=== PATIENT | female | born 1985 | race Caucasian/White ===

== ENCOUNTER → 2018-12-01 | Outpatient (CLI) | payer BC ==
--- NOTE | 2018-12-01 12:02 | Diagnostic Imaging Report ---
INDICATION: survey TECHNIQUE: Multiple real-time grayscale images were obtained over the gravid uterus. COMPARISON: None. FINDINGS: There are no prior studies available for comparison. There is a single live fetus in cephalic presentation. heart motion is noted and a rate of 143 BPM is recorded. There are no abnormalities identified; however, the four-chamber heart view and the spine are not optimally visualized. I would recommend that a short-term (4-6 weeks) follow-up exam be performed for further evaluation. The growth parameters are fairly uniform. The placenta is anterior and there is no previa. The amniotic fluid volume is within normal limits. The cervix is visualized and measures 5.5 cm in length. Biometrical measurements are as follows: Biparietal 4.70 cm, age 20 weeks 2 days. Head circumference 17.37 cm, age 20 weeks 0 days. Abdominal circumference 15.04 cm, age 20 weeks 2 days. Femur length 3.51 cm, age 21 weeks 1 days. Sonographic estimate age: 20 weeks 3 days. Sonographic estimated date of delivery: 04/17/19. Estimated Weight: 362 gm (+/- 53 gm). LMP percentile: 37%. heart rate: 143 beats per minute. number: 1 of 1. IMPRESSION: 1. There is a single live fetus in cephalic presentation approximately 20 weeks 3 days gestation +/-1.5 weeks. The EDC is April 17, 2019. 2. There are no abnormalities identified although the four-chamber heart view and spine are not optimally visualized. Recommendations as above. 3. The growth parameters are fairly uniform. Dictated by: Dictated on workstation # [id number]
== END ==
LOC: RAD 10:05
PROVIDERS: ATTEND Obstetrics & Gynecology
DX: Z36.89 Encounter for other specified antenatal screening (principal); Z3A.20 20 weeks gestation of pregnancy
CPT/HCPCS: 76805

== ENCOUNTER 2019-04-18 19:00 | Inpatient (IN) | payer BC ==
--- NOTE | 2019-04-18 19:11 | NUR ---
SINGH IRAHETA presented to unit via ambulatory from home, accompanied by so, for scheduled INDUCTION. SINGH IRAHETA weighed, gowned, voided, and to bed. SINGH IRAHETA oriented to bed controls, call light, TV, heat, and A/C controls.
--- NOTE | 2019-04-18 21:23 | History & Physical-OB ---
OB - Chief Complaint & HPI Date/Time Date of Admission: Date of Admission: April 18, 2019 at 19:00 Date seen by a Provider: April 18, 2019 Time Seen by a Provider: 21:00 Chief Complaint/History OB-Reason for Admission/Chief: Induction of Labor Hx : 1 Hx Para: 0 Expected Date of Delivery: April 15, 2019 Gestational Age in Weeks: 40 Gestational Age in Days: 3 Indication for induction: post dates Admission Nurse Assessment Rev: Yes Other O pos Antibody neg RI RPR NR HBsAg NR HIV NR GC neg GBS neg Allergies and Home Medications Patient Home Medication List Home Medication List Reviewed: Yes OB - History Hx of Present Care: Yes Ultrasounds: Normal mid trimester US Obstetrical Complications: None Medical Complications: None Patient Past Medical History n/a OB - Admission Exam Physical Exam HEENT: NCAT Heart: Rhythm Normal Lungs: Clear Abdomen: Gravid Extremities: Normal Reflexes: Normal Cervical Dilatation: 2cm Effacement: 75% Station: -1 Membranes: Intact Heart Rate: 130's Accelerations: Accelerations Present Decelerations: No Decelerations Short Term Variability: Present Shoe Cutter Variability: Average (6-25) Contractions on Admission: 6-10 Minutes Apart Singh Scoring Tool (Modified) Dilation (cm): 1-2cm (1) Effacement (%): 51-79% (2) Descent/Station: -1,0 (2) Cervix Consistency: Soft (2) Cervix Position: Anterior (2) Singh Score: 8 OB - Assessment/Plan/Diagnosis Assessment Assessment: induction of labor Admission Dx 33 yo @ 40.3 Postdates GBS neg Admission Status: Inpatient Order (span 2 midnights) Reason for Inpatient Admission: induction of labor at term Plan Induction Method: per Misoprostol Protocol MARTY ANTHONY DO April 18, 2019 21:23
[2019-04-18] MEDS ORDERED: D5 LR IV SOLUTION 1,000 ML IV ONE (21:28)
[2019-04-18] MEDS: D5 LR IV SOLUTION 1,000 ML IV SCH (21:50)
[2019-04-18 22:00] VITALS: BP 130/76
[2019-04-18] MEDS ORDERED: MISOPROSTOL 100 MCG (CYTOTEC) TAB ONE (22:59)
[2019-04-18] MEDS ORDERED: MISOPROSTOL 100 MCG (CYTOTEC) TAB PO ONE (23:15)
[2019-04-18] MEDS ORDERED: TERBUTALINE INJ 1 MG/ML (BRETHINE) AMP SC PRN (23:15)
[2019-04-18 23:25] LABS: BASOPHILS % (AUTO) 0 % (0-10); EOSINOPHILS # (AUTO) 0.1 10^3/uL (0.0-0.3); EOSINOPHILS % (AUTO) 1 % (0-10); HEMATOCRIT 35 % (35-52); HEMOGLOBIN 12.1 G/DL (11.5-16.0); LYMPHOCYTES # (AUTO) 1.8 X 10^3 (1.0-4.0); LYMPHOCYTES % (AUTO) 19 % (12-44); MEAN CORPUSCULAR HEMOGLOBIN 31 PG (25-34); MEAN CORPUSCULAR HGB CONC 35 G/DL (32-36); MEAN CORPUSCULAR VOLUME 90 FL (80-99); MEAN PLATELET VOLUME 11.1 FL (7.4-10.4); MONOCYTES # (AUTO) 0.7 X 10^3 (0.0-1.0); MONOCYTES % (AUTO) 7 % (0-12); NEUTROPHILS # (AUTO) 7.3 X 10^3 (1.8-7.8); NEUTROPHILS % (AUTO) 74 % (42-75); PLATELET COUNT 213 10^3/uL (130-400); RED CELL DISTRIBUTION WIDTH 14.1 % (10.0-14.5); WHITE BLOOD COUNT 9.9 10^3/uL (4.3-11.0)
[2019-04-18] MEDS ORDERED: LACTATED RINGERS 1,000 ML IV ONE (23:30)
[2019-04-19] VITALS (78 sets, daily range): BP systolic 94–148; BP diastolic 50–94
[2019-04-19] MEDS ORDERED: MISOPROSTOL 100 MCG (CYTOTEC) TAB PO SCH (03:15)
[2019-04-19] MEDS ORDERED: CATHETER FLUSH 10 ML SYR IV SCH ×2 (06:00→22:00)
[2019-04-19] MEDS: D5 LR IV SOLUTION 1,000 ML IV SCH ×3 (06:20→20:22)
[2019-04-19] MEDS ORDERED: HYDROmorphone 2 MG/ML VIAL (DILAUDID) ONE (07:01)
[2019-04-19] MEDS ORDERED: HYDROmorphone 2 MG/ML VIAL (DILAUDID) IV NR (07:15)
[2019-04-19] MEDS ORDERED: OXYTOCIN/NORMAL SALINE 500 ML IV SCH ×2 (08:06→21:56)
--- NOTE | 2019-04-19 10:46 | NUR ---
anesthesia notified of pt's request for epidural placement.
[2019-04-19] MEDS ORDERED: SUFENTA 0.6MCG/ML BUPIVA 0.125 100 ML ONE ×2 (10:55→19:58)
[2019-04-19] MEDS ORDERED: BUPIVACAINE 0.25% 30 ML (SENSORCAINE) VIAL ONE (11:30)
[2019-04-19] MEDS ORDERED: fentaNYL INJECTION 100 MCG/2 ML AMP ONE ×2 (11:30→22:01)
[2019-04-19] MEDS ORDERED: LIDOCAINE PF 2% 5 ML (XYLOCAINE) VIAL ONE (12:12)
[2019-04-19] MEDS ORDERED: ACETAMINOPHEN 500 MG TAB (TYLENOL) ONE (19:41)
[2019-04-19] MEDS ORDERED: PROMETHAZINE INJ 25 MG/ML (PHENERGAN) AMP ONE (20:12)
[2019-04-19] MEDS ORDERED: PROMETHAZINE INJ 25 MG/ML (PHENERGAN) AMP IVP ONE (21:00)
[2019-04-19] MEDS ORDERED: ACETAMINOPHEN 500 MG TAB (TYLENOL) PO ONE (21:00)
[2019-04-19] MEDS ORDERED: CITRIC ACID/SOB CIT (BICITRA) 30 ML UDC ONE (21:14)
[2019-04-19] MEDS ORDERED: ceFAZolin 2 GM/50 ML NS 50 ML ONE (21:14)
[2019-04-19] MEDS ORDERED: FAMOTIDINE 20MG/2ML IV (PEPCID) ONE (21:14)
[2019-04-19] MEDS ORDERED: METOCLOPRAMIDE INJ 10 MG/2 ML (REGLAN) ONE (21:14)
--- NOTE | 2019-04-19 21:55 | Progress Note-Standard ---
Standard Progress Note Progress Notes/Assess & Plan Date Seen by a Provider: April 19, 2019 Time Seen by a Provider: 21:51 Progress/Assessment & Plan Patient induced last night for postdates and started on Misoprostol PO overnight. Started on Pitocin this AM and AROM performed after epidural was placed. She progressed to 7 cm about 5PM, and began having pressure. However re-evaluation at 7 PM and 9PM revealed no cervical change and in fact, swelling of the cervix and caput. Discussed with the patient significant cervical swelling and the beginning of vulvar swelling was discussed. Recommended proceeding with PLTCS due to failure to progress, and suspected CPD. Risk of the procedure reviewed to the patient in detail with present, all questions answered. She and her were agreeable, will proceed with OR staff MARTY Teague DO April 19, 2019 9:55 pm
--- NOTE | 2019-04-19 21:59 | Discharge Inst-Women's Service ---
Discharge Inst-Women's Serv Depart Medication/Instructions New, Converted or Re-Newed RX: RX on Chart Final Diagnosis POD 2 PLTCS Consults/Follow Up Additional Follow Up: Yes Orders/Referrals Dr. Asencio in 7-10 days and in 6 weeks Activity Activity: Activity as Tolerated Driving Instructions: No Driving for 1 Week NO SMOKING: NO SMOKING Nothing Inside Vagina: No Douching, No [place], No Tampons Diet Discharge Diet: No Restrictions Symptoms to Report to : Bleeding Excessive, Pain Increased, Fever Over 101 Degrees F, Vaginal Bleeding Increase, Questions/Concerns For Any Problems or Questions: Contact Your Physician Skin/Wound Care Infection Signs and Symptoms: Increased Redness, Foul Odor of Wound, Increased Drainage, Skin Itchy or Has a Rash, Increased Swelling, Temperature Above 101 F Operative Area Clean and Dry: Keep Incision Clean/Dry Stitches/[place]/Dermabond: Dermabond, Care of Stitches Bathing Instructions: MARTY Esqueda DO April 19, 2019 9:59 pm
[2019-04-19] MEDS ORDERED: TETANUS,DIPTH,PERTUSS P/F (BOOSTRIX) 0.5 ML VIAL IM SCH (22:00)
[2019-04-19] MEDS ORDERED: ONDANSETRON 4 MG/2 ML (SDV) Z0FRAN IVP PRN (22:00)
[2019-04-19] MEDS ORDERED: MEASLES,MUMPS,RUBELLA 1 EA INJ SC SCH (22:00)
[2019-04-19] MEDS ORDERED: KETOROLAC 30 MG/ML VIAL IV SCH (22:00)
[2019-04-19] MEDS ORDERED: DOCU100C37 PO (22:01)
[2019-04-19] MEDS ORDERED: ONDANSETRON 4 MG/2 ML (SDV) Z0FRAN ONE (22:01)
[2019-04-19] MEDS ORDERED: OXYTOCIN/NORMAL SALINE 1,000 ML IV ONE (22:01)
[2019-04-19] MEDS ORDERED: ACHD5005 PO (22:01)
[2019-04-19] MEDS ORDERED: KETOROLAC 30 MG/ML VIAL ONE (22:01)
[2019-04-19] MEDS ORDERED: IBUP-844 PO (22:01)
[2019-04-19] MEDS ORDERED: LACTATED RINGERS 1,000 ML IV PRN (22:47)
[2019-04-20] VITALS (7 sets, daily range): BP systolic 102–137; BP diastolic 56–85
--- NOTE | 2019-04-20 00:10 | NUR ---
Pt to pp room 308 per this rn and chemical recovery operator, scds on and pumping bilat, pain tolerable, a/o, denies needs at this time, pt preparing to stable .
[2019-04-20] MEDS: HYDROcodone/APAP 5 MG/325 MG (LORTAB) TAB PO PRN ×3 (02:00→16:38)
[2019-04-20] MEDS ORDERED: FAMOTIDINE 20MG/2ML IV (PEPCID) IV ONE (02:45)
[2019-04-20] MEDS ORDERED: METOCLOPRAMIDE INJ 10 MG/2 ML (REGLAN) IV ONE (02:45)
[2019-04-20] MEDS ORDERED: CITRIC ACID/SOB CIT (BICITRA) 30 ML UDC PO ONE (02:45)
[2019-04-20] MEDS ORDERED: LACTATED RINGERS 1,000 ML IV ONE (04:25)
[2019-04-20] MEDS ORDERED: CATHETER FLUSH 10 ML SYR IV PRN (04:30)
[2019-04-20] MEDS ORDERED: NALOXONE 0.4 MG/ML 1 ML (NARCAN) VIAL IV PRN (04:30)
[2019-04-20] MEDS ORDERED: EPIDURAL (SUFENTA 0.6MCG/ML BUPIVA 0.125%) 100 ML BAG EPI SCH (04:30)
--- NOTE | 2019-04-20 05:24 | OPERATIVE REPORT ---
DATE OF SERVICE: PREOPERATIVE DIAGNOSES: 1. A 33-year-old G1, P0 at 40 weeks and 4 days' gestation. 2. Failure to progress. 3. Suspected cephalopelvic disproportion. 4. Occiput posterior. POSTOPERATIVE DIAGNOSES: 1. A 33-year-old G1, P0 at 40 weeks and 4 days' gestation. 2. Failure to progress. 3. Suspected cephalopelvic disproportion. 4. Occiput posterior. PROCEDURE: Primary low transverse section. SURGEON: Louie Anthony DO ANESTHESIA: Spinal. ESTIMATED BLOOD LOSS: 300 mL. URINE: 400 mL clear at the end of the procedure. FLUIDS: 500 mL of lactated Ringer's solution. FINDINGS: A live female weighing 6 pounds 14 ounces, Apgars 8 and 9. Grossly normal appearing uterus, bilateral fallopian tubes and ovaries. INDICATIONS FOR PROCEDURE: This patient was brought in for induction of labor for postdates. Prior to her induction, risk of induction was reviewed with the patient versus risk of postdates and approaching post-term. She elected to proceed with postdates induction. Please see my preoperative note for complete details pertaining to the patient's labor course and indications for procedure. The patient was taken to the operating room where spinal anesthesia was found to be adequate. OPERATIVE REPORT IN DETAIL: Once anesthesia was found to be adequate, she was placed in the supine position with a leftward tilt, prepped and draped in a normal sterile fashion. A timeout was performed and anesthesia was tested. I then proceeded to make a Pfannenstiel skin incision with a knife and carried down to the underlying fascia using Bovie cautery. The fascial incision extended laterally using Bovie cautery. The superior aspect of the fascial incision was then grasped with Elvin clamps, tented up and dissected off the underlying rectus muscles. The inferior aspect of the fascial incision was then grasped with Elvin clamps, tented up and dissected off the underlying rectus muscles. The rectus muscle was then dissected down the midline using Metzenbaum scissors, which exposed to the peritoneum, which were entered bluntly and extended using blunt traction. I then placed an Tremaine ring retractor into the peritoneal incision, which offers excellent lateral sidewall retraction. I identified the lower uterine segment, which was found to be thinned out and make a low transverse incision to the vesicouterine peritoneum and bluntly dissect the bladder flap off the lower uterine segment. I then proceed with myotomy until membranes were visualized, at which point I extended uterine incision laterally and superiorly using bandage scissors. The infant was found in the vertex presentation, occiput posterior. With gentle fundal pressure, the infant's head was elevated out the incision where the nares and oropharynx were bulb suctioned. Anterior and posterior shoulders were delivered and was then brought to the operative field where the cord was doubly clamped and cut and was handed off to waiting nurses in attendance. Cord blood was collected. Three-vessel cord with intact placenta delivered spontaneously thereafter. IV Pitocin was initiated to facilitate uterine contraction. Uterine fundus became firmer with bimanual massage. Uterus was then exteriorized and cleared of all endometrial clot and debris. I then proceeded with closing the uterine incision using 0 Vicryl suture in a running locked fashion. Second layer of imbricating 0 Monocryl was placed. Excellent hemostasis was noted after doing this. I then placed the uterus back in the pelvis and copiously irrigated the pelvis using normal saline. Once again, there was no active bleeding noted from any of my dissection planes. I placed Interceed antiadhesive over my low transverse incision. I proceeded with closing the peritoneum using 3-0 Vicryl suture in a running fashion after I removed the Tremaine ring retractor. I also reapproximate the rectus muscles using 3-0 Vicryl suture in an interrupted fashion. The fascia was reapproximated using 0 Vicryl suture in a running fashion. The subcutaneous tissue was reapproximated using 3-0 plain in interrupted subcutaneous stitch and the skin was reapproximated using 4-0 Monocryl in a running subcuticular. Dermabond was applied to the incision and sterile dressings with adhesive white tape. The patient tolerated the procedure well and taken to recovery area in stable condition. Lap and sponge count was correct at the end of procedure. Instrument count was correct as well. Two grams of Ancef given preoperatively for infection prophylaxis. Job ID: [id number] DocumentID: [id number] Dictated Date: 04/19/2019 23:25:54 Compliance Paralegal Date: 04/20/2019 05:24:03 Dictated By: LOUIE ANTHONY DO
[2019-04-20 05:37] LABS: BASOPHILS % (AUTO) 0 % (0-10); EOSINOPHILS % (AUTO) 0 % (0-10); HEMATOCRIT 32 % (35-52); LYMPHOCYTES # (AUTO) 1.3 X 10^3 (1.0-4.0); LYMPHOCYTES % (AUTO) 11 % (12-44); MEAN CORPUSCULAR HEMOGLOBIN 30 PG (25-34); MEAN CORPUSCULAR HGB CONC 34 G/DL (32-36); MEAN CORPUSCULAR VOLUME 90 FL (80-99); MEAN PLATELET VOLUME 10.5 FL (7.4-10.4); MONOCYTES # (AUTO) 0.9 X 10^3 (0.0-1.0); MONOCYTES % (AUTO) 8 % (0-12); NEUTROPHILS # (AUTO) 9.2 X 10^3 (1.8-7.8); NEUTROPHILS % (AUTO) 81 % (42-75); PLATELET COUNT 158 10^3/uL (130-400); RED CELL DISTRIBUTION WIDTH 14.3 % (10.0-14.5); WHITE BLOOD COUNT 11.4 10^3/uL (4.3-11.0)
--- NOTE | 2019-04-20 05:40 | NUR ---
Pt up to bathroom for first postop void, unmeasured as hat not in toilet r/t s/o using bathroom prior. Scant bleeding, pericare pads changed with minimal assist. Pt assisted back to bed, scds on and pumping, blankets adjusted, needs denied. see iv and drsg int. for details in care. Will cont to monitor.
[2019-04-20] MEDS: METOCLOPRAMIDE 10 MG (REGLAN) TAB PO SCH ×2 (06:50)
[2019-04-20] MEDS: DOCUSATE SODIUM 100 MG (COLACE) CAP PO SCH (08:45)
--- NOTE | 2019-04-20 08:53 | NUR ---
THIS RN TO PT'S BEDSIDE, PT SITTING UP IN BED, BREAKFAST TRAY AT THE BEDSIDE. VS OBTAINED. MEDS GIVEN PO; SEE EMAR FOR FURTHER. INITIAL SHIFT ASSESSMENT COMPLETED; SEE INTERVENTION. S/O AT THE BEDSIDE. POC DISCUSSED, PT VERBALIZES UNDERSTANDING AND DENIES ANY NEEDS OR QUESTIONS AT THIS TIME. CALL LIGHT WITHIN REACH.
--- NOTE | 2019-04-20 09:53 | Postpartum Progress Note ---
Note Note Day # 1 Subjective: Patient is without complaints. Ambulating, voiding. Tolerating a regular diet without nausea or vomiting. Normal lochia. Pain is well controlled with oral pain medications. Objective: Physical Exam: General - Alert and oriented, no apparent distress Abdomen - Soft, appropriately tender to palpation, non-distended, fundus firm at umbilicus Extremities - no edema, negative Rajeev's bilaterally Incision- c/d/i Assessment: POD 1 PLTCS Acute blood loss anemia Plan: Routine care. Encourage breast feeding. Encourage ambulation. Ferrous sulfate supplementation. Plan for discharge tomorrow Vitals - Labs Vital Signs - I&O Vital Signs Date Time Temp Pulse Resp B/P (MAP) Pulse Ox O2 Delivery O2 Flow Rate FiO2 04/20/19 08:47 98.4 68 18 107/64 (78) 97 Room Air 04/20/19 03:09 98.4 64 18 108/65 (79) 95 Room Air 04/20/19 01:48 Room Air 04/20/19 00:10 98.4 18 96 Room Air 04/20/19 00:00 18 96 Room Air 04/19/19 23:50 18 95 Room Air 04/19/19 23:40 18 96 Room Air 04/19/19 23:30 18 97 Room Air 04/19/19 23:19 99.1 18 99 Room Air 04/19/19 22:20 73 18 135/76 (95) 96 Room Air 04/19/19 22:00 74 18 132/72 (92) 98 Room Air 04/19/19 21:45 90 18 139/63 (88) 97 Room Air 04/19/19 21:30 81 18 124/74 (91) 98 Room Air 04/19/19 21:15 77 18 114/68 (83) 97 Room Air 04/19/19 21:00 65 18 119/71 (87) 97 Room Air 04/19/19 20:45 98.8 74 18 140/78 (98) 98 Room Air 04/19/19 20:30 71 18 126/74 (91) 98 Room Air 04/19/19 20:15 77 18 122/70 (87) 98 Room Air 04/19/19 20:00 71 18 98 Room Air 04/19/19 19:45 74 18 146/70 (95) 95 Room Air 04/19/19 19:30 76 18 120/67 (84) 99 Room Air 04/19/19 19:15 70 18 118/72 (87) 98 Room Air 04/19/19 19:00 74 18 116/72 (87) 97 Room Air 04/19/19 18:45 76 18 125/66 (85) 97 Room Air 04/19/19 18:30 69 18 122/63 (82) 97 Room Air 04/19/19 18:15 73 18 118/72 (87) 97 Room Air 04/19/19 18:00 68 18 122/67 (85) 95 Room Air 04/19/19 17:45 75 18 118/73 (88) 97 Room Air 04/19/19 17:30 78 18 97/59 (72) 96 Room Air 04/19/19 17:23 98.9 04/19/19 17:15 73 18 116/72 (87) 96 Room Air 04/19/19 17:00 68 18 118/70 (86) 95 Room Air 04/19/19 16:45 70 18 115/67 (83) 95 Room Air 04/19/19 16:30 73 18 118/68 (85) 95 Room Air 04/19/19 16:15 68 18 117/60 (79) 95 Room Air 04/19/19 16:00 68 18 121/71 (88) 95 Room Air 04/19/19 15:45 68 18 120/79 (93) 95 Room Air 04/19/19 15:38 98.7 04/19/19 15:30 68 18 120/79 (93) 95 Room Air 04/19/19 15:15 67 18 120/74 (89) 96 Room Air 04/19/19 15:00 61 18 111/68 (82) 96 Room Air 04/19/19 14:45 60 18 114/64 (81) 94 Room Air 04/19/19 14:30 65 18 115/67 (83) 97 Room Air 04/19/19 14:15 65 18 119/66 (83) 97 Room Air 04/19/19 14:00 62 18 117/66 (83) 95 Room Air 04/19/19 13:45 64 18 116/72 (87) 95 Room Air 04/19/19 13:30 64 18 116/72 (87) 95 Room Air 04/19/19 13:15 60 18 114/68 (83) 96 Room Air 04/19/19 13:00 65 18 118/70 (86) 98 Room Air 04/19/19 12:45 65 18 96 Room Air 04/19/19 12:40 62 18 114/63 (80) 99 Room Air 04/19/19 12:35 64 18 109/65 (80) 98 Room Air 04/19/19 12:30 63 18 109/66 (80) 95 Room Air 04/19/19 12:25 64 18 111/64 (80) 95 Room Air 04/19/19 12:20 64 18 113/63 (80) 96 Room Air 04/19/19 12:15 70 18 115/63 (80) 97 Room Air 04/19/19 12:10 70 18 115/63 (80) 97 Room Air 04/19/19 12:05 71 18 113/62 (79) 97 Room Air 04/19/19 12:00 71 18 122/69 (86) 97 Room Air 04/19/19 11:55 87 18 126/74 (91) 98 Room Air 04/19/19 11:50 71 18 124/65 (84) 97 Room Air 04/19/19 11:45 76 18 129/81 (97) 96 Room Air 04/19/19 11:40 68 18 148/81 (103) 96 Room Air 04/19/19 11:35 98.2 73 18 136/63 (87) 93 Room Air 04/19/19 11:30 65 18 143/70 (94) Room Air 04/19/19 11:15 75 18 121/63 (82) Room Air 04/19/19 11:00 90 18 119/71 (87) Room Air 04/19/19 10:45 71 18 126/78 (94) Room Air 04/19/19 10:30 61 18 131/78 (95) Room Air 04/19/19 10:15 71 18 115/74 (88) Room Air 04/19/19 10:00 75 18 123/62 (82) Room Air I & O 04/20/19 07:00 Intake Total 2350 ml Output Total 450 ml Balance 1900 ml Labs Laboratory Tests 04/20/19 05:30: White Blood Count 11.4H, Red Blood Count 3.61L, Hemoglobin 11.0L, Hematocrit 32L , Mean Corpuscular Volume 90, Mean Corpuscular Hemoglobin 30, Mean Corpuscular Hemoglobin Concent 34, Red Cell Distribution Width 14.3, Platelet Count 158, Mean Platelet Volume 10.5H, Neutrophils (%) (Auto) 81H, Lymphocytes (%) (Auto) 11L, Monocytes (%) (Auto) 8, Eosinophils (%) (Auto) 0, Basophils (%) (Auto) 0, Neutrophils # (Auto) 9.2H, Lymphocytes # (Auto) 1.3, Monocytes # (Auto) 0.9, Eosinophils # (Auto) 0.0, Basophils # (Auto) 0.0 MARTY ANTHONY DO April 20, 2019 09:53
--- NOTE | 2019-04-20 10:00 | NUR ---
REPORT TO Yoandy HANNA RN.
--- NOTE | 2019-04-20 11:15 | NUR ---
Report taken from Fahad Haddad Rn. This nurse assuming care of pt. 1830 Pain eased - passing flatus, no BM yet. Good bonding.
[2019-04-20] MEDS: IBUPROFEN 600 MG (MOTRIN) TAB PO SCH (12:20)
--- NOTE | 2019-04-20 15:10 | Anesthesia-Regional Post-Op ---
Regional Patient Condition Mental Status: Alert, Oriented x3 Circulation: Same as Pre-Op Headache: Absent Sensation: Full Recovery Motor Block: Absent Post Op Complications Complications None Follow Up Care/Instructions Patient Instructions None needed. Anesthesia/Patient Condition Patient is doing well, no complaints, stable vital signs, no apparent adverse anesthesia problems. No complications reported per nursing. GALINA JEAN BAPTISTE CRNA April 20, 2019 15:10
[2019-04-21] MEDS: IBUPROFEN 600 MG (MOTRIN) TAB PO SCH ×3 (00:09→12:33)
[2019-04-21] MEDS: DOCUSATE SODIUM 100 MG (COLACE) CAP PO SCH ×2 (00:09→08:35)
[2019-04-21] MEDS: HYDROcodone/APAP 5 MG/325 MG (LORTAB) TAB PO PRN ×2 (02:16→08:35)
[2019-04-21 05:25] VITALS: BP 112/69
--- NOTE | 2019-04-21 07:58 | NUR ---
PT RESTING, HOLDING . NO NEEDS VOICED.
[2019-04-21 08:38] VITALS: BP 135/80
--- NOTE | 2019-04-21 08:43 | NUR ---
DR. ANTHONY TO PT'S BEDSIDE.
--- NOTE | 2019-04-21 09:09 | Postpartum Progress Note ---
Note Note Day # 2 Subjective: Patient is without complaints. Ambulating, voiding. Tolerating a regular diet without nausea or vomiting. Normal lochia. Pain is well controlled with oral pain medications. Objective: Physical Exam: General - Alert and oriented, no apparent distress Abdomen - Soft, appropriately tender to palpation, non-distended, fundus firm at umbilicus Extremities - no edema, negative Rajeev's bilaterally Incision- c/d/i Assessment: POD 2 PLTCS Plan: Routine care. Encourage breast feeding. Encourage ambulation. Ferrous sulfate supplementation. Plan for discharge today Vitals - Labs Vital Signs - I&O Vital Signs Date Time Temp Pulse Resp B/P (MAP) Pulse Ox O2 Delivery O2 Flow Rate FiO2 04/21/19 05:25 98.9 97 16 112/69 (83) 97 Room Air 04/20/19 19:25 98.4 73 16 137/83 (101) 97 Room Air 04/20/19 15:30 98.2 81 16 116/56 (76) 94 Room Air 04/20/19 12:30 98.6 82 16 133/85 (101) 95 Room Air I & O 04/21/19 07:00 Intake Total 600 ml Output Total 250 ml Balance 350 ml MARTY ANTHONY DO April 21, 2019 09:09
--- NOTE | 2019-04-21 12:10 | NUR ---
DISCHARGE PAPERS PROVIDED AND REVIEWED WITH PT, PT VERBALIZES UNDERSTANDING AND DENIES ANY QUESTIONS AT THIS TIME. PAPER SIGNED. FOLLOW UP APPOINTMENT CARDS AND RX'S ALSO PROVIDED AND PLACED INTO DISCHARGE FOLDER.
--- NOTE | 2019-04-21 15:19 | NUR ---
PT DISCHARGED FROM -[facility] TO [facility]IA AMBULATORY IN STABLE CONDITION ACC BY THIS RN AND S/O.
== END 2019-04-21 15:19 | disposition home or self-care (01) | DRG 787 ==
LOC: LDRP 19:00
PROVIDERS: ADMIT Obstetrics & Gynecology; ATTEND Obstetrics & Gynecology
PROC: 3E0DXGC Introduction of Other Therapeutic Substance into Mouth and Pharynx, External Approach (ICD-10-PCS; 2019-04-18)
PROC: 10D00Z1 Extraction of Products of Conception, Low, Open Approach (ICD-10-PCS; principal; 2019-04-19 22:26)
DX: O48.0 Post-term pregnancy (principal); O90.81 Anemia of the puerperium; D62 Acute posthemorrhagic anemia; O62.0 Primary inadequate contractions; O65.4 Obstructed labor due to fetopelvic disproportion, unspecified; O64.0XX0 Obstructed labor due to incomplete rotation of fetal head, not applicable or unspecified; Z3A.40 40 weeks gestation of pregnancy; Z37.0 Single live birth; Z23 Encounter for immunization
CPT/HCPCS: 36415; 85025; 86850; 86900; 86901; 90715; 94664

== ENCOUNTER → 2020-10-02 | Outpatient (CLI) | payer BC ==
[~2020-10-02] MED LIST: ACHD5005 PO; DOCU100C37 PO; IBUP-844 PO
== END ==
LOC: LABNPT 05:59
PROVIDERS: ATTEND Family Medicine
DX: J06.9 Acute upper respiratory infection, unspecified (principal); Z20.828 Contact with and (suspected) exposure to other viral communicable diseases
CPT/HCPCS: 87635

== ENCOUNTER → 2021-12-18 | Outpatient (CLI) | payer BC ==
--- NOTE | 2021-12-18 17:01 | Diagnostic Imaging Report ---
INDICATION: patient, anatomical survey. TECHNIQUE: Multiple real-time grayscale images were obtained over the gravid uterus. COMPARISON: None during this . FINDINGS: A single live intrauterine fetus is seen measuring 19 weeks 1 day by composite measurements with heart rate of 1 42 bpm. Fetus is in variable presentation. Amniotic fluid is qualitatively normal. There is no subchorionic bleed. Placenta is posterior with no evidence of previa. Maternal adnexa could not be visualized. survey demonstrates normal appearing kidneys and bladder and stomach. Normal appearing intracranial ventricles are seen. Normal four-chamber heart view was seen. spine views were unremarkable. Three-vessel cord and cord insertion were unremarkable. Biometrical measurements are as follows: Biparietal 4.26 cm, age 19 weeks 0 days. Head circumference 16.11 cm, age 19 weeks 0 days. Abdominal circumference 14.00 cm, age 19 weeks 3 days. Femur length 2.88 cm, age 18 weeks 6 days. Sonographic estimate age: 19 weeks 1 days. Sonographic estimated date of delivery: 05/13/2022. Estimated Weight: 274 gm (+/- 40 gm). LMP percentile: 9%. heart rate: 142 beats per minute. number: 1 of 1. IMPRESSION: Single live intrauterine fetus measuring 19 weeks 1 day in size, as described above. There was no detectable abnormality. Dictated by: Dictated on workstation # [id number]
== END ==
LOC: RAD 15:15
PROVIDERS: ATTEND Obstetrics & Gynecology
DX: Z34.02 Encounter for supervision of normal first pregnancy, second trimester (principal); Z3A.19 19 weeks gestation of pregnancy
CPT/HCPCS: 76805

== ENCOUNTER 2022-05-01 05:34 | Outpatient (CLI) | payer BC ==
[~2022-05-01] VITALS: Ht 152 cm; Wt 78.0 kg
[2022-05-01] MEDS ORDERED: PNV1TABL9 PO (12:27)
[2022-05-01] MEDS ORDERED: CALC300T4 PO (12:27)
== END 2022-05-01 12:43 | disposition home or self-care (01) ==
LOC: PREOP 05:34
PROVIDERS: ATTEND Obstetrics & Gynecology
DX: Z01.818 Encounter for other preprocedural examination (principal)

== ENCOUNTER 2022-05-07 10:07 | Inpatient (IN) | payer BC ==
[~2022-05-07] VITALS: Ht 152.4 cm; Wt 78.5 kg
[2022-05-07] VITALS (9 sets, daily range): BP systolic 101–133; BP diastolic 59–86
[~2022-05-07 10:07] MED LIST changes: +CALC300T4 PO; +PNV1TABL9 PO
[2022-05-07] MEDS ORDERED: METOCLOPRAMIDE INJ 10 MG/2 ML (REGLAN) IV ONE (10:30)
[2022-05-07] MEDS ORDERED: LACTATED RINGERS 1,000 ML IV PRN ×2 (10:30)
[2022-05-07] MEDS ORDERED: FAMOTIDINE 20MG/2ML IV (PEPCID) IV ONE (10:30)
[2022-05-07] MEDS ORDERED: CATHETER FLUSH 10 ML SYR IV PRN (10:30)
[2022-05-07] MEDS ORDERED: ceFAZolin 2 GM IV Premixed 50 ML IV ONE (10:30)
[2022-05-07] MEDS ORDERED: CITRIC ACID/SOB CIT (BICITRA) 30 ML UDC PO ONE (10:30)
[2022-05-07 10:57] LABS: BASOPHILS % (AUTO) 0 % (0-10); EOSINOPHILS % (AUTO) 0 % (0-10); HEMATOCRIT 38 % (35-52); HEMOGLOBIN 13.2 g/dL (11.5-16.0); LYMPHOCYTES # (AUTO) 1.1 10^3/uL (1.0-4.0); LYMPHOCYTES % (AUTO) 21 % (12-44); MEAN CORPUSCULAR HEMOGLOBIN 31 pg (25-34); MEAN CORPUSCULAR HGB CONC 35 g/dL (32-36); MEAN CORPUSCULAR VOLUME 89 fL (80-99); MONOCYTES # (AUTO) 0.4 10^3/uL (0.0-1.0); MONOCYTES % (AUTO) 8 % (0-12); NEUTROPHILS # (AUTO) 3.9 10^3/uL (1.8-7.8); NEUTROPHILS % (AUTO) 71 % (42-75); PLATELET COUNT 177 10^3/uL (130-400); WHITE BLOOD COUNT 5.5 10^3/uL (4.3-11.0)
[2022-05-07] MEDS ORDERED: fentaNYL INJ 100 MCG/2 ML AMP ONE (12:08)
--- NOTE | 2022-05-07 12:12 | History & Physical-OB ---
OB - Chief Complaint & HPI Date/Time Date of Admission: Date of Admission: May 07, 2022 at 10:07 Date seen by a Provider: May 07, 2022 Time Seen by a Provider: 12:00 Chief Complaint/History OB-Reason for Admission/Chief: Section Hx : 2 Hx Para: 1 Expected Date of Delivery: May 07, 2022 Gestational Age in Weeks: 40 Indication for : desires repeat Admission Nurse Assessment Rev: Yes History of Labs O pos Antibody neg RI RPR NR HBsAg NR HIV NR GC neg GBS neg Allergies and Home Medications Allergies Coded Allergies: sulfamethoxazole (Unverified Allergy, Intermediate, Rash, 05/01/22) trimethoprim (Unverified Allergy, Intermediate, Rash, 05/01/22) Patient Home Medication List Home Medication List Reviewed: Yes Calcium Carbonate (Tums) 300 Mg Calcium (750 Mg) Tab.chew, 300 MG PO UD PRN for PRN, (Reported) Entered as Reported by: BRIGITTE ALBARADO on 05/01/22 1227 Pnv Cmb#21/Iron/Folic Acid ( Complete Caplet) 14 Mg Iron-400 Mcg Tablet, 1 EACH PO, (Reported) Entered as Reported by: BRIGITTE ALBARADO on 05/01/22 1227 Discontinued Medications Docusate Sodium (Docusate Sodium) 100 Mg Capsule, 100 MG PO BID PRN for CONSTIPATION-1ST LINE Discontinued Reason: No Longer Taking Prescribed by: MARTY ANTHONY on 04/19/192200 Hydrocodone Bit/Acetaminophen (Lortab 5 Mg Tablet) 1 Tab Tab, 2 TAB PO Q6HR PRN for PAIN-MODERATE Discontinued Reason: No Longer Taking Prescribed by: MARTY ANTHONY on 04/19/192200 Ibuprofen (Ibu) 600 Mg Tablet, 600 MG PO Q6HR Discontinued Reason: No Longer Taking Prescribed by: MARTY ANTHONY on 04/19/192200 OB - History Hx of Present Care: Yes Ultrasounds: Normal mid trimester US Obstetrical Complications: None Medical Complications: None Delivery History Adverse Rxn to Tranfusion: No Patient Past Medical History n/a Immunizations Influenza Vaccine Up-to-Date: Yes; Up-to-Date First/Initial COVID19 Vaccine: 2020 Second COVID19 Vaccination: 2020 OB - Admission Exam Physical Exam Vitals: Vital Signs 05/07/22 05/07/22 10:40 11:10 Temp 37.5 Pulse 94 Resp 18 B/P (MAP) 117/68 (84) Pulse Ox 99 O2 Delivery Room Air HEENT: NCAT Heart: Rhythm Normal Lungs: Clear Abdomen: Gravid Extremities: Normal Reflexes: Normal Heart Rate: 130's Accelerations: Accelerations Present Decelerations: No Decelerations Short Term Variability: Present Custodial Variability: Average (6-25) Contractions on Admission: 6-10 Minutes Apart Intensity: Mild Labs Laboratory Tests Test 05/07/22 10:40 Range/Units White Blood Count 5.5 4.3-11.0 10^3/uL Red Blood Count 4.21 3.80-5.11 10^6/uL Hemoglobin 13.2 11.5-16.0 g/dL Hematocrit 38 35-52 % Mean Corpuscular Volume 89 80-99 fL Mean Corpuscular Hemoglobin 31 25-34 pg Mean Corpuscular Hemoglobin Concent 35 32-36 g/dL Red Cell Distribution Width 13.2 10.0-14.5 % Platelet Count 177 130-400 10^3/uL Mean Platelet Volume 10.0 9.0-12.2 fL Immature Granulocyte % (Auto) 1 % Neutrophils (%) (Auto) 71 42-75 % Lymphocytes (%) (Auto) 21 12-44 % Monocytes (%) (Auto) 8 0-12 % Eosinophils (%) (Auto) 0 0-10 % Basophils (%) (Auto) 0 0-10 % Neutrophils # (Auto) 3.9 1.8-7.8 10^3/uL Lymphocytes # (Auto) 1.1 1.0-4.0 10^3/uL Monocytes # (Auto) 0.4 0.0-1.0 10^3/uL Eosinophils # (Auto) 0.0 0.0-0.3 10^3/uL Basophils # (Auto) 0.0 0.0-0.1 10^3/uL Immature Granulocyte # (Auto) 0.0 0.0-0.1 10^3/uL OB - Assessment/Plan/Diagnosis Assessment Admission Dx 36 yo @ 40.0 Previous Admission Status: Inpatient Order (span 2 midnights) Reason for Inpatient Admission: Repeat at 40 weeks Plan Plan: Section MARTY ANTHONY DO May 07, 2022 12:12
[2022-05-07] MEDS ORDERED: TETANUS,DIPTH,PERTUSS P/F (BOOSTRIX) 0.5 ML VIAL IM SCH (12:15)
[2022-05-07] MEDS ORDERED: ONDANSETRON 4 MG/2 ML (SDV) Z0FRAN IVP PRN (12:15)
[2022-05-07] MEDS ORDERED: NALOXONE 0.4 MG/ML 1 ML (NARCAN) VIAL IV PRN (12:15)
[2022-05-07] MEDS ORDERED: MEASLES,MUMPS,RUBELLA 1 EA INJ SC SCH (12:15)
[2022-05-07] MEDS ORDERED: OXYTOCIN PRE-MIX DRIP 500 ML IV SCH (12:15)
--- NOTE | 2022-05-07 12:15 | Discharge Inst-Women's Service ---
Discharge Inst-Women's Serv Depart Medication/Instructions New, Converted or Re-Newed RX: Transmitted to Pharmacy Final Diagnosis POD 2 RLTCS Problems Reviewed?: Yes Consults/Follow Up Additional Follow Up: Yes Orders/Referrals Dr. Asencio in 7-10 days and 6 weeks Activity Activity: Activity as Tolerated Driving Instructions: You May Drive NO SMOKING: NO SMOKING Nothing Inside Vagina: No Douching, No [place], No Tampons Diet Discharge Diet: No Restrictions Symptoms to Report to : Bleeding Excessive, Pain Increased, Fever Over 101 Degrees F, Vaginal Bleeding Increase, Questions/Concerns For Any Problems or Questions: Contact Your Physician Skin/Wound Care Infection Signs and Symptoms: Increased Redness, Foul Odor of Wound, Increased Drainage, Skin Itchy or Has a Rash, Increased Swelling, Temperature Above 101 F Operative Area Clean and Dry: Keep Incision Clean/Dry Stitches/Elijah/Dermabond: Dermabond, Care of Stitches Bathing Instructions: MARTY Esqueda DO May 07, 2022 12:15
[2022-05-07] MEDS ORDERED: IBUP-844 PO (12:16)
[2022-05-07] MEDS ORDERED: ACHD5005 PO (12:16)
[2022-05-07] MEDS ORDERED: DOCU100C37 PO (12:16)
[2022-05-07] MEDS ORDERED: PHENYLEPHRINE 100 MCG/ML 10 ML (ANESTHESIA) SYR ONE (12:20)
[2022-05-07] MEDS ORDERED: ONDANSETRON 4 MG/2 ML (SDV) Z0FRAN ONE (12:46)
[2022-05-07] MEDS ORDERED: OXYTOCIN PRE-MIX DRIP 1,000 ML IV ONE (12:46)
[2022-05-07] MEDS ORDERED: BUPIVACAINE 0.5% 30 ML (SENSORCAINE) VIAL ONE (12:46)
[2022-05-07] MEDS: KETOROLAC 30 MG/ML VIAL IV SCH ×2 (14:39→19:48)
[2022-05-07] MEDS: CATHETER FLUSH 10 ML SYR IV SCH ×2 (14:39→19:48)
[2022-05-07] MEDS: HYDROcodone/APAP 5 MG/325 MG (LORTAB) TAB PO PRN ×2 (16:53→22:08)
[2022-05-07] MEDS: DOCUSATE SODIUM 100 MG (COLACE) CAP PO SCH (19:48)
--- NOTE | 2022-05-07 23:21 | OPERATIVE REPORT ---
DATE OF SERVICE: 05/07/2022 PREOPERATIVE DIAGNOSES: 1. A 36-year-old G2, P1 at 40 weeks' gestation. 2. Previous section. POSTOPERATIVE DIAGNOSES: 1. A 36-year-old G2, P1 at 40 weeks' gestation. 2. Previous section. PROCEDURE: Repeat low transverse section. SURGEON: Louie Asencio DO ORNAMENTAL METAL ERECTOR APPRENTICE: Lexii Guan DNP, who was necessary for manipulation and retraction throughout the procedure. ANESTHESIA: Spinal. ESTIMATED BLOOD LOSS: 500 mL. URINE OUTPUT: 75 mL clear at the end of the procedure. FLUIDS: 1700 mL lactated Ringer's solution. FINDINGS: A live female infant weighing 6 pounds 13 ounces, Apgars of 8 and 9. Grossly normal appearing uterus, bilateral fallopian tubes and ovaries. SPECIMEN SENT: None. INDICATIONS FOR PROCEDURE: A 36-year-old female is a patient, who sought care in my office. She planned for trial; however, never became favorable with her cervix. She was agreeable to proceed with repeat . Risks of procedure were discussed with the patient in the preoperative area as well as in her care. After all of her questions were answered, consent was obtained, the patient was taken to the operating room. OPERATIVE REPORT IN DETAIL: Once in the operating room, spinal analgesia was found to be adequate. She was placed in supine position with leftward tilt, prepped and draped in normal sterile fashion. A timeout was performed and anesthesia was tested. I then make a Pfannenstiel skin incision through the previously existing scar using knife and carried down to underlying fascia using Bovie cautery. The fascial incision extended laterally using Bovie cautery and superior aspect of fascial incision was then grasped with Elvin clamps, tented up and dissected off the underlying rectus muscles. The inferior aspect of fascial incision was then grasped with Elvin clamps, tented up and dissected off the underlying rectus muscles. Rectus muscles were dissected down the midline using sharp dissection, which exposed the peritoneum, which I entered bluntly and extended using blunt traction. Tremaine ring retractor was placed in the peritoneal incision, which offers excellent lateral sidewall retraction. I identified the lower uterine segment, which was found to be thinned out and make a low transverse incision to the vesicouterine peritoneum and bluntly dissected off the lower uterine segment, creating a bladder flap. I then proceeded with my myotomy until membranes were visualized, at which point I extended the uterine incision laterally and superiorly using bandage scissors. Amniotomy was performed in the process of doing this, clear fluid was noted. The infant was found in vertex presentation. With gentle fundal pressure, the infant's head was elevated up the incision where the nares and oropharynx were bulb suctioned. Anterior and posterior shoulders were delivered. The was then brought to the operative field where the cord was doubly clamped and cut and infant was handed off to waiting nurses in attendance. Cord blood was collected, 3-vessel cord with intact placenta is delivered spontaneously thereafter. IV Pitocin was initiated to facilitate uterine contraction. Uterine fundus confirmed by manual massage. The uterus was then exteriorized and cleared of all endometrial clots and debris. I then proceeded with closing the uterine incision using 0 Vicryl suture in running locked fashion. Second layer of imbricating 0 Monocryl was placed. Excellent hemostasis was noted after doing this. I then placed the uterus back in the pelvis and copiously irrigated the pelvis using normal saline. Once again no bleeding noted from any of my dissection planes. I placed Interceed antiadhesive over my low transverse incision. I removed the Tremaine ring retractor and then proceeded with closing the peritoneum using 3-0 Vicryl suture in a running fashion. The rectus muscle was reapproximated using 3-0 Vicryl suture in interrupted fashion. The fascia was reapproximated using 0 Vicryl suture in running fashion. Subcutaneous tissue was reapproximated using 3-0 plain interrupted subcutaneous stitch and skin reapproximated using 4-0 Monocryl running subcuticular. Dermabond was applied to incision and sterile dressing with adhesive white tape. The patient tolerated the procedure well and sent to recovery area in stable condition. Lap and sponge counts were correct at the end of the procedure. Instrument counts correct as well. Two grams of Ancef given preoperatively for infection prophylaxis. Job ID: [id number] DocumentID: [id number] Dictated Date: 05/07/2022 13:32:05 Benefits Advisor Date: 05/07/2022 23:21:00 Dictated By: DO NISH VIVAR
[2022-05-08] MEDS: KETOROLAC 30 MG/ML VIAL IV SCH ×2 (00:57→06:48)
[2022-05-08 00:58] VITALS: BP 128/71
[2022-05-08] MEDS ORDERED: SIMETHICONE 80 MG (MYLICON) CHEW ONE (01:04)
[2022-05-08] MEDS: SIMETHICONE 80 MG (MYLICON) CHEW PO SCH ×2 (01:05→08:58)
[2022-05-08 04:00] VITALS: BP 120/68
[2022-05-08] MEDS: HYDROcodone/APAP 5 MG/325 MG (LORTAB) TAB PO PRN ×3 (06:06→18:38)
[2022-05-08 06:40] LABS: BASOPHILS % (AUTO) 0 % (0-10); EOSINOPHILS % (AUTO) 1 % (0-10); HEMATOCRIT 32 % (35-52); LYMPHOCYTES # (AUTO) 1.7 10^3/uL (1.0-4.0); LYMPHOCYTES % (AUTO) 28 % (12-44); MEAN CORPUSCULAR HEMOGLOBIN 32 pg (25-34); MEAN CORPUSCULAR HGB CONC 35 g/dL (32-36); MEAN CORPUSCULAR VOLUME 91 fL (80-99); MEAN PLATELET VOLUME 10.4 fL (9.0-12.2); MONOCYTES # (AUTO) 0.6 10^3/uL (0.0-1.0); MONOCYTES % (AUTO) 10 % (0-12); NEUTROPHILS # (AUTO) 3.7 10^3/uL (1.8-7.8); NEUTROPHILS % (AUTO) 61 % (42-75); PLATELET COUNT 151 10^3/uL (130-400); WHITE BLOOD COUNT 6.1 10^3/uL (4.3-11.0)
[2022-05-08] MEDS: CATHETER FLUSH 10 ML SYR IV SCH (06:48)
--- NOTE | 2022-05-08 07:16 | Postpartum Progress Note ---
Note Note Day # 1 Subjective: Patient is without complaints. Ambulating, voiding. Tolerating a regular diet without nausea or vomiting. Normal lochia. Pain is well controlled with oral pain medications. Objective: Physical Exam: General - Alert and oriented, no apparent distress Abdomen - Soft, appropriately tender to palpation, non-distended, fundus firm at umbilicus Extremities - no edema, negative Rajeev's bilaterally Incision- c/d/i Assessment: POD 1 RLTCS Acute blood loss anemia Plan: Routine care. Encourage breast feeding. Encourage ambulation. Ferrous sulfate supplementation. Plan for discharge tomorrow Vitals - Labs Vital Signs - I&O Vital Signs Date Time Temp Pulse Resp B/P (MAP) Pulse Ox O2 Delivery O2 Flow Rate FiO2 05/08/22 00:58 36.2 62 18 128/71 (90) 98 Room Air 05/07/22 19:48 36.7 60 18 128/79 (95) 98 Room Air 05/07/22 16:55 37.2 85 18 112/59 (76) 97 Room Air 05/07/22 15:04 Room Air 05/07/22 14:50 36.9 64 16 129/70 (89) 97 Room Air 05/07/22 14:00 36.8 18 120/73 (89) 98 Room Air 05/07/22 14:00 Room Air 05/07/22 13:45 37.1 18 107/63 (78) 98 Room Air 05/07/22 13:45 Room Air 05/07/22 13:30 36.8 18 104/64 (77) 98 Room Air 05/07/22 13:30 Room Air 05/07/22 13:15 36.7 18 101/61 (74) 98 Room Air 05/07/22 13:15 Room Air 05/07/22 13:02 Room Air 05/07/22 11:10 94 18 117/68 (84) 99 Room Air 05/07/22 10:40 37.5 148 18 99 Room Air I & O 05/08/22 07:00 Intake Total 1550 ml Output Total 575 ml Balance 975 ml Labs Laboratory Tests 05/07/22 10:40: White Blood Count 5.5, Red Blood Count 4.21, Hemoglobin 13.2, Hematocrit 38, Mean Corpuscular Volume 89, Mean Corpuscular Hemoglobin 31, Mean Corpuscular Hemoglobin Concent 35, Red Cell Distribution Width 13.2, Platelet Count 177, Mean Platelet Volume 10.0, Immature Granulocyte % (Auto) 1, Neutrophils (%) (A uto) 71, Lymphocytes (%) (Auto) 21, Monocytes (%) (Auto) 8, Eosinophils (%) (Auto) 0, Basophils (%) (Auto) 0, Neutrophils # (Auto) 3.9, Lymphocytes # (Auto) 1.1, Monocytes # (Auto) 0.4, Eosinophils # (Auto) 0.0, Basophils # (Auto) 0.0, Immature Granulocyte # (Auto) 0.0 05/08/22 06:07: White Blood Count 6.1, Red Blood Count 3.49L, Hemoglobin 11.0L, Hematocrit 32L, Mean Corpuscular Volume 91, Mean Corpuscular Hemoglobin 32, Mean Corpuscular Hemoglobin Concent 35, Red Cell Distribution Width 13.3, Platelet Count 151, Mean Platelet Volume 10.4, Immature Granulocyte % (Auto) 0, Neutrophils (%) (Auto) 61, Lymphocytes (%) (Auto) 28, Monocytes (%) (Auto) 10, Eosinophils (%) (Auto) 1, Basophils (%) (Auto) 0, Neutrophils # (Auto) 3.7, Lymphocytes # (Auto) 1.7, Monocytes # (Auto) 0.6, Eosinophils # (Auto) 0.0, Basophils # (Auto) 0.0, Immature Granulocyte # (Auto) 0.0 MARTY ANTHONY 10, 2022 07:16
[2022-05-08 08:56] VITALS: BP 134/66
[2022-05-08] MEDS: DOCUSATE SODIUM 100 MG (COLACE) CAP PO SCH ×2 (08:58→20:43)
[2022-05-08 12:37] VITALS: BP 114/70
--- NOTE | 2022-05-08 13:04 | Anesthesia-Regional Post-Op ---
Regional Patient Condition Mental Status: Alert, Oriented x3 Circulation: Same as Pre-Op Headache: Absent Sensation: Full Recovery Motor Block: Absent Post Op Complications Complications None Follow Up Care/Instructions Patient Instructions None needed. Anesthesia/Patient Condition Patient is doing well, no complaints, stable vital signs, no apparent adverse anesthesia problems. No complications reported per nursing. PHILLY DYKES CRNA May 08, 2022 13:04
[2022-05-08] MEDS: IBUPROFEN 600 MG (MOTRIN) TAB PO SCH ×2 (15:03→20:44)
[2022-05-08 16:56] VITALS: BP 134/74
[2022-05-09 00:09] VITALS: BP 119/57
[2022-05-09] MEDS: HYDROcodone/APAP 5 MG/325 MG (LORTAB) TAB PO PRN ×4 (00:11→20:00)
[2022-05-09] MEDS: IBUPROFEN 600 MG (MOTRIN) TAB PO SCH ×4 (03:34→21:43)
[2022-05-09 05:57] VITALS: BP 115/61
[2022-05-09 08:15] VITALS: BP 117/75
[2022-05-09] MEDS: DOCUSATE SODIUM 100 MG (COLACE) CAP PO SCH ×2 (09:15→20:00)
--- NOTE | 2022-05-09 09:52 | Progress Note ---
Standard Progress Note Progress Notes/Assess & Plan Date Seen by a Provider: May 09, 2022 Time Seen by a Provider: 09:51 Progress/Assessment & Plan This pain is a 36-year-old 2 now para [address] Asencio for whom I am covering. She underwent delivery 2 days ago. Today she is without complaint. She is ambulating, voiding, tolerating oral intake well and has good pain control. She is requesting discharge home. Vital Signs Date Time Temp Pulse Resp B/P (MAP) Pulse Ox O2 Delivery O2 Flow Rate FiO2 05/09/22 05:57 37.0 86 18 115/61 (79) 96 Room Air 05/09/22 00:09 36.7 79 18 119/57 (77) 97 Room Air 05/08/22 16:56 36.0 80 18 134/74 (94) 98 Room Air 05/08/22 12:37 36.5 74 18 114/70 (85) 97 Room Air I & O 05/09/22 07:00 Intake Total 1200 ml Balance 1200 ml Signs are stable. Patient is afebrile. The abdomen is benign. The surgical incision is clean dry and intact. Extremities show no clubbing cyanosis. There is no Homans' sign. Pelvic exam is deferred Assessment and plan Post operative day #2 status post repeat delivery doing well. Plan is for discharge home with follow-up in clinic SASHA PRICE MD May 09, 2022 09:52
[2022-05-09 12:30] VITALS: BP 124/65
[2022-05-09 17:15] VITALS: BP 123/73
[2022-05-09 21:51] VITALS: BP 111/75
[2022-05-10] MEDS: HYDROcodone/APAP 5 MG/325 MG (LORTAB) TAB PO PRN ×2 (02:59→08:27)
[2022-05-10] MEDS: IBUPROFEN 600 MG (MOTRIN) TAB PO SCH ×2 (02:59→08:27)
[2022-05-10 03:00] VITALS: BP 106/64
[2022-05-10] MEDS: SIMETHICONE 80 MG (MYLICON) CHEW PO SCH ×2 (03:09→08:26)
[2022-05-10 08:00] VITALS: BP 122/75
[2022-05-10] MEDS: DOCUSATE SODIUM 100 MG (COLACE) CAP PO SCH (08:26)
--- NOTE | 2022-05-10 10:21 | Progress Note ---
Standard Progress Note Progress Notes/Assess & Plan Date Seen by a Provider: May 10, 2022 Time Seen by a Provider: 10:19 Progress/Assessment & Plan This pain is a 36-year-old 2 now para [address] Asencio for whom I am covering. She underwent delivery 2 days ago. Today she is without complaint. She is ambulating, voiding, tolerating oral intake well and has good pain control. She is requesting discharge home. Vital Signs Date Time Temp Pulse Resp B/P (MAP) Pulse Ox O2 Delivery O2 Flow Rate FiO2 05/09/22 05:57 37.0 86 18 115/61 (79) 96 Room Air 05/09/22 00:09 36.7 79 18 119/57 (77) 97 Room Air 05/08/22 16:56 36.0 80 18 134/74 (94) 98 Room Air 05/08/22 12:37 36.5 74 18 114/70 (85) 97 Room Air I & O 05/09/22 07:00 Intake Total 1200 ml Balance 1200 ml Signs are stable. Patient is afebrile. The abdomen is benign. The surgical incision is clean dry and intact. Extremities show no clubbing cyanosis. There is no Homans' sign. Pelvic exam is deferred Assessment and plan Post operative day #2 status post repeat delivery doing well. Plan is for discharge home with follow-up in clinic May 10, 2022 This patient is without complaint. She is ambulating, voiding, tolerating oral intake well and has good pain control. She is requesting discharge home today. We had planned discharge yesterday but she did not feel quite up to it and in addition her was at home ill and it was felt advisable to remain inpatient for another night. Patient does feel up to discharge home and reports that her is feeling better. Vital Signs Date Time Temp Pulse Resp B/P (MAP) Pulse Ox O2 Delivery O2 Flow Rate FiO2 05/10/22 03:00 36.3 83 18 106/64 (78) 97 Room Air 05/09/22 21:51 36.5 84 18 111/75 (87) 97 Room Air 05/09/22 17:15 36.5 70 18 123/73 (90) 97 Room Air 05/09/22 12:30 36.5 84 18 124/65 (84) 97 Room Air Vital signs are stable. Patient is afebrile. The abdomen is benign. Physical exam is deferred Extremities show no clubbing cyanosis. There is no Homans' sign. Assessment and plan Post day #3 status post repeat delivery doing well. Plan is for discharge home with follow-up in clinic SASHA PRICE MD May 10, 2022 10:21
[2022-05-10 10:40] VITALS: BP 122/75
== END 2022-05-10 10:40 | disposition home or self-care (01) | DRG 787 ==
LOC: LDRP 10:07 → WS 05-08 09:34 → LDRP 05-08 09:34
PROVIDERS: ADMIT Obstetrics & Gynecology; ATTEND Obstetrics & Gynecology
PROC: 10D00Z1 Extraction of Products of Conception, Low, Open Approach (ICD-10-PCS; principal; 2022-05-07 12:08)
DX: O34.211 Maternal care for low transverse scar from previous cesarean delivery (principal); D62 Acute posthemorrhagic anemia; O90.81 Anemia of the puerperium; Z3A.40 40 weeks gestation of pregnancy; Z37.0 Single live birth; Z88.2 Allergy status to sulfonamides; Z88.1 Allergy status to other antibiotic agents
CPT/HCPCS: 36415; 85025; 86850; 86900; 86901; 87081; 94664